=== PATIENT | male | born 1980 | race Hispanic/Latino ===

== ENCOUNTER 2018-09-20 14:51 | Emergency (ER) | payer BC ==
[2018-09-20] MEDS ORDERED: DEXAMETHASONE 4 MG TAB ONE (15:44)
--- NOTE | 2018-09-20 15:59 | EDPHYS ---
Physician Documentation [facility] Name: Presley Madera Age: 38 yrs Sex: Male : 1980 Arrival Date: 09/20/2018 Time: 14:55 Bed 11 Private MD: None, None ED Physician Favian Asif HPI: 09/20 15:39 This 38 yrs old Male presents to ER via Ambulatory with complaints of Cough, snw Sore Throat. 15:39 The patient or guardian reports cough, flu symptoms, low-grade fever, myalgias, no snw appetite, hoarse voice. Onset: The symptoms/episode began/occurred suddenly, 4 day(s) ago, and became persistent. Severity of symptoms: At their worst the symptoms were moderate. Associated signs and symptoms: Pertinent positives: fever, rhinorrhea, sore throat. yearly. The patient has not recently seen a physician. Historical: - Allergies: 15:00 No Known Allergies; ss - Home Meds: 15:00 None [Active]; ss - PMHx: 15:00 None; ss - PSHx: 15:00 None; ss - Immunization history:: Adult Immunizations up to date. - Social history:: Smoking status: Patient uses tobacco products, denies chronic smoking, but will smoke occasionally. - Ebola Screening: : Patient denies exposure to infectious person Patient denies travel to an Ebola-affected area in the 21 days before illness onset. ROS: 15:29 Constitutional: Negative for fever, chills, and weight loss, Eyes: Negative for injury, snw pain, redness, and discharge. 15:39 Neck: Negative for injury, pain, and swelling, Cardiovascular: Negative for chest pain, snw palpitations, and edema, Abdomen/GI: Negative for abdominal pain, nausea, vomiting, diarrhea, and constipation, Back: Negative for injury and pain, : Negative for injury, bleeding, discharge, and swelling, MS/Extremity: Negative for injury and deformity, Skin: Negative for injury, rash, and discoloration, Neuro: Negative for headache, weakness, numbness, tingling, and seizure, Psych: Negative for depression, anxiety, suicide ideation, homicidal ideation, and hallucinations. 15:39 ENT: Positive for nasal discharge, sinus congestion, sore throat. 15:39 Respiratory: Positive for cough, with no reported sputum. Exam: 15:35 Constitutional: This is a well developed, well nourished patient who is awake, alert, snw and in no acute distress. Head/Face: Normocephalic, atraumatic. Eyes: Pupils equal round and reactive to light, extra-ocular motions intact. Lids and lashes normal. Conjunctiva and sclera are non-icteric and not injected. Cornea within normal limits. Periorbital areas with no swelling, redness, or edema. Neck: Trachea midline, no thyromegaly or masses palpated, and no cervical lymphadenopathy. Supple, full range of motion without nuchal rigidity, or vertebral point tenderness. No Meningismus. Chest/axilla: Normal chest wall appearance and motion. Nontender with no deformity. No lesions are appreciated. Cardiovascular: Regular rate and rhythm with a normal S1 and S2. No gallops, murmurs, or rubs. Normal PMI, no JVD. No pulse deficits. Respiratory: Lungs have equal breath sounds bilaterally, clear to auscultation and percussion. No rales, rhonchi or wheezes noted. No increased work of breathing, no retractions or nasal flaring. Abdomen/GI: Soft, non-tender, with normal bowel sounds. No distension or tympany. No guarding or rebound. No evidence of tenderness throughout. Back: No spinal tenderness. No costovertebral tenderness. Full range of motion. Skin: Warm, dry with normal turgor. Normal color with no rashes, no lesions, and no evidence of cellulitis. MS/ Extremity: Pulses equal, no cyanosis. Neurovascular intact. Full, normal range of motion. Neuro: Awake and alert, GCS 15, oriented to person, place, time, and situation. Cranial nerves II-XII grossly intact. Motor strength 5/5 in all extremities. Sensory grossly intact. Cerebellar exam normal. Normal gait. Psych: Awake, alert, with orientation to person, place and time. Behavior, mood, and affect are within normal limits. 15:35 ENT: External ear(s): are unremarkable, Ear canal(s): are normal, TM's: are normal, Nose: is normal, Mouth: is normal, Posterior pharynx: erythema, that is moderate. Vital Signs: 15:00 BP 160 / 109; Pulse 89; Resp 16; Temp 98.4(TE); Pulse Ox 98% on R/A; Weight 117.93 kg; ss Height 5 ft. 9 in. (175.26 cm); Pain 5/10; 16:10 BP 145 / 70; Pulse 82; Resp 18; Pulse Ox 98% on R/A; Pain 1/10; mg2 15:00 Body Mass Index 38.39 (117.93 kg, 175.26 cm) ss MDM: 15:15 Patient medically screened. snw 15:39 Data reviewed: vital signs, nurses notes. Data interpreted: Pulse oximetry: on room air snw is 98 %. Interpretation: normal. Counseling: I had a detailed discussion with the patient and/or guardian regarding: the historical points, exam findings, and any diagnostic results supporting the discharge/admit diagnosis, the presence of at least one elevated blood pressure reading (>120/80) during this emergency department visit, lab results, the need for outpatient follow up, for definitive care. 09/20 15:01 Order name: Strep; Complete Time: 16:00 ss 09/20 15:01 Order name: Flu; Complete Time: 16:00 ss 09/20 15:59 Order name: Throat Culture EDMS Administered Medications: 15:40 Drug: Decadron 8 mg Route: PO; mg2 16:02 Follow up: Response: No adverse reaction; Marked relief of symptoms mg2 Disposition: 09/20/18 15:59 Discharged to Home. Impression: Acute upper respiratory infection, unspecified, Acute pharyngitis. - Condition is Stable. - Discharge Instructions: Hypertension, Pharyngitis, Upper Respiratory Infection, Adult, Cool Mist Vaporizer, Rehydration, Adult. - Prescriptions for Tessalon Perles 100 mg Oral Capsule - take 1 capsule by ORAL route every 8 hours As needed; 15 capsule. Prednisone 20 mg Oral Tablet - take 2 tablet by ORAL route once daily for 5 days; 10 tablet. - Work release form, Medication Reconciliation Form, Thank You Letter, Antibiotic Education, Prescription Opioid Use form. - Follow up: Private Physician; When: 2 - 3 days; Reason: Recheck today's complaints, Continuance of care, Re-evaluation by your physician. Follow up: Emergency Department; When: As needed; Reason: Worsening of condition. Follow up: Cristiana Estrada MD; When: As needed; Reason: Continuance of care. Addendum: 09/23/2018 19:05 Co-signature as Attending Physician, Favian Asif MD. g s Signatures: Dispatcher [employer] EDKatie Bianchi, MATILDE-C TRAPPER BIRD-Kati Simons, RN RN ss Favian Asif MD MD Zhao Dias, RN RN mg2 Corrections: (The following items were deleted from the chart) 09/20 16:11 15:59 09/20/2018 15:59 Discharged to Home. Impression: Acute upper respiratory mg2 infection, unspecified; Acute pharyngitis. Condition is Stable. Forms are Medication Reconciliation Form, Thank You Letter, Antibiotic Education, Prescription Opioid Use. Follow up: Private Physician; When: 2 - 3 days; Reason: Recheck today's complaints, Continuance of care, Re-evaluation by your physician. Follow up: Emergency Department; When: As needed; Reason: Worsening of condition. Follow up: Cristiana Estarda; When: As needed; Reason: Continuance of care. snw
--- NOTE | 2018-09-20 15:59 | ER ---
Nurse's Notes [facility] Name: Presley Madera Age: 38 yrs Sex: Male : 1980 Arrival Date: 09/20/2018 Time: 14:55 Bed 11 Private MD: None, None Diagnosis: Acute upper respiratory infection, unspecified;Acute pharyngitis Presentation: 09/20 14:59 Presenting complaint: Patient states: fever, cough and sore throat x 3-4. Transition of ss care: patient was not received from another setting of care. Onset of symptoms was September 17, 2018. Risk Assessment: Do you want to hurt yourself or someone else? Patient reports no desire to harm self or others. Initial Sepsis Screen: Does the patient meet any 2 criteria? No. Patient's initial sepsis screen is negative. Does the patient have a suspected source of infection? No. Patient's initial sepsis screen is negative. Care prior to arrival: None. 14:59 Method Of Arrival: Ambulatory ss 14:59 Acuity: NATASHA 4 ss Historical: - Allergies: 15:00 No Known Allergies; ss - Home Meds: 15:00 None [Active]; ss - PMHx: 15:00 None; ss - PSHx: 15:00 None; ss - Immunization history:: Adult Immunizations up to date. - Social history:: Smoking status: Patient uses tobacco products, denies chronic smoking, but will smoke occasionally. - Ebola Screening: : Patient denies exposure to infectious person Patient denies travel to an Ebola-affected area in the 21 days before illness onset. Screenin:58 Abuse screen: Denies threats or abuse. Denies injuries from another. Nutritional mg2 screening: No deficits noted. Tuberculosis screening: No symptoms or risk factors identified. Fall Risk None identified. Assessment: 15:57 General: Appears in no apparent distress. comfortable, Behavior is calm, cooperative. mg2 Pain: Complains of pain in throat Pain does not radiate. Pain currently is 4 out of 10 on a pain scale. Quality of pain is described as aching, Pain began gradually, 1 day ago. Is intermittent, Alleviated by rest, Aggravated by eating, drinking. Neuro: Level of Consciousness is awake, alert, obeys commands, Oriented to person, place, time. Cardiovascular: Capillary refill < 3 seconds Patient's skin is warm and dry. Respiratory: Airway is patent Respiratory effort is even, unlabored, Respiratory pattern is regular, symmetrical, Breath sounds are clear bilaterally. in right upper lobe, left upper lobe, left posterior upper lobe, right posterior upper lobe, left posterior lower lobe, right posterior middle lobe and right posterior lower lobe. GI: No signs and/or symptoms were reported involving the gastrointestinal system. : No signs and/or symptoms were reported regarding the genitourinary system. EENT: Throat is reddened. Derm: Skin is intact, is healthy with good turgor, Skin is pink, warm \T\ dry. normal. Musculoskeletal: No signs and/or symptoms reported regarding the musculoskeletal system. Vital Signs: 15:00 BP 160 / 109; Pulse 89; Resp 16; Temp 98.4(TE); Pulse Ox 98% on R/A; Weight 117.93 kg; ss Height 5 ft. 9 in. (175.26 cm); Pain 5/10; 16:10 BP 145 / 70; Pulse 82; Resp 18; Pulse Ox 98% on R/A; Pain 1/10; mg2 15:00 Body Mass Index 38.39 (117.93 kg, 175.26 cm) ED Course: 14:55 Patient arrived in ED. dl4 14:55 None, None is Private Physician. dl4 14:59 Triage completed. ss 15:00 Arm band placed on right wrist. ss 15:04 Flu Sent. ss 15:04 Strep Sent. ss 15:13 Zhao Dias, RN is Primary Nurse. mg2 15:14 [facility]C [facility]. snw 15:14 Favian Asif MD is Attending Physician. snw 15:58 Cristiana Estrada MD is Referral Physician. snw 15:58 Patient has correct armband on for positive identification. mg2 15:58 No provider procedures requiring assistance completed. Patient did not have IV access mg2 during this emergency room visit. Administered Medications: 15:40 Drug: Decadron 8 mg Route: PO; mg2 16:02 Follow up: Response: No adverse reaction; Marked relief of symptoms mg2 Outcome: 15:59 Discharge ordered by . snw 16:10 Discharged to home ambulatory. mg2 16:10 Condition: stable 16:10 Discharge instructions given to patient, Instructed on discharge instructions, follow up and referral plans. medication usage, Demonstrated understanding of instructions, follow-up care, medications, Prescriptions given X 2. 16:11 Patient left the ED. mg2 Signatures: Katie Jacobo, VENETIAN BLIND MECHANIC-C VENETIAN BLIND MECHANIC-Csnw Kati Osborne RN RN ss Zhao Dias RN RN [facility] Theodore Quintana dl4 Corrections: (The following items were deleted from the chart) 15:05 14:59 Acuity: NATASHA 3 [facility]
== END 2018-09-20 16:11 | disposition home or self-care (01) ==
LOC: ER 14:51
DX: J02.9 Acute pharyngitis, unspecified (principal); Z72.0 Tobacco use
CPT/HCPCS: 87070; 87081; 87804; 99283

== ENCOUNTER 2018-11-30 13:17 | Emergency (ER) | payer BC ==
[2018-11-30] MEDS ORDERED: NA CHLORIDE 0.9% 1,000 ML ONE (14:00)
[2018-11-30] MEDS ORDERED: ONDANSETRON 4 MG/2 ML VIAL ONE (14:00)
--- NOTE | 2018-11-30 15:26 | EDPHYS ---
Physician Documentation [facility] Name: Presley Madera Age: 38 yrs Sex: Male : 1980 Arrival Date: 11/30/2018 Time: 13:20 Bed 13 Private MD: None, None ED Physician Bradley Matthews HPI: 11/30 14:49 This 38 yrs old Male presents to ER via Ambulatory with complaints of rn Nausea/Vomiting/Diarrhea. 14:49 The patient presents to the emergency department with nausea, vomiting, diarrhea. rn Onset: The symptoms/episode began/occurred 2 day(s) ago. 14:49 Possible causes: unknown. The symptoms are aggravated by nothing. The symptoms are rn alleviated by nothing. Severity of symptoms: At their worst the symptoms were moderate in the emergency department the symptoms are unchanged. The patient has experienced similar episodes in the past. REports multiple co-workers sick, + nausea/vomiting/diarrhea, no abd pain. NO fever. . Historical: - Allergies: 13:33 No Known Allergies; hb - Home Meds: 13:33 None [Active]; hb - PMHx: 13:33 None; hb - PSHx: 13:33 None; hb - Immunization history:: Adult Immunizations up to date. - Social history:: Smoking status: Patient uses tobacco products, smokes one-half pack cigarettes per day. - Ebola Screening: : No symptoms or risks identified at this time. - Family history:: not pertinent. - Hospitalizations: : No recent hospitalization is reported. ROS: 14:49 Constitutional: Negative for fever, chills, and weight loss, Eyes: Negative for injury, rn pain, redness, and discharge, Neck: Negative for injury, pain, and swelling, Cardiovascular: Negative for chest pain, palpitations, and edema, Respiratory: Negative for shortness of breath, cough, wheezing, and pleuritic chest pain, Abdomen/GI: Negative for abdominal pain, and constipation MS/Extremity: Negative for injury and deformity, Skin: Negative for injury, rash, and discoloration, Neuro: Negative for headache, numbness, tingling, and seizure. Exam: 14:49 Constitutional: This is a well developed, well nourished patient who is awake, alert, rn and in no acute distress. Head/Face: Normocephalic, atraumatic. Eyes: Pupils equal round and reactive to light, extra-ocular motions intact. Lids and lashes normal. Conjunctiva and sclera are non-icteric and not injected. Cornea within normal limits. Periorbital areas with no swelling, redness, or edema. ENT: dry MM Cardiovascular: Regular rate and rhythm, No pulse deficits. Respiratory: Lungs have equal breath sounds bilaterally, clear to auscultation, No increased work of breathing, no retractions or nasal flaring. Abdomen/GI: soft, non-tender MS/ Extremity: Pulses equal, no cyanosis. Neurovascular intact. Full, normal range of motion. Equal circumference. Neuro: Awake and alert, GCS 15, oriented to person, place, time, and situation. Cranial nerves II-XII grossly intact. Motor strength 5/5 in all extremities. Sensory grossly intact. Cerebellar exam normal. Normal gait. Vital Signs: 13:33 BP 156 / 100; Pulse 88; Resp 16; Temp 98.4; Pulse Ox 100% on R/A; Pain 0/10; hb MDM: 13:35 Patient medically screened. rn 15:18 Differential diagnosis: viral gastroenteritis, gastroenteritis. Data reviewed: vital rn signs, nurses notes, and as a result, I will discharge patient. Counseling: I had a detailed discussion with the patient and/or guardian regarding: the historical points, exam findings, and any diagnostic results supporting the discharge/admit diagnosis, the need for outpatient follow up, to return to the emergency department if symptoms worsen or persist or if there are any questions or concerns that arise at home. Response to treatment: the patient's symptoms have markedly improved after treatment, and as a result, I will discharge patient. Special discussion: I discussed with the patient/guardian in detail that at this point there is no indication for admission to the hospital. It is understood, however, that if the symptoms persist or worsen the patient needs to return immediately for re-evaluation. 11/30 13:39 Order name: IV Start; Complete Time: 14:06 rn Administered Medications: 13:50 Drug: Zofran 4 mg Route: IVP; Site: right hand; ls4 14:17 Follow up: Response: No adverse reaction; Marked relief of symptoms ls4 13:50 Drug: NS 0.9% 1000 ml Route: IV; Rate: 1000 ml; Site: right hand; ls4 Disposition: 11/30/18 15:24 Discharged to Home. Impression: Vomiting, Diarrhea, unspecified. - Condition is Stable. - Discharge Instructions: Food Choices to Help Relieve Diarrhea, Adult, Diarrhea, Adult, Viral Gastroenteritis, Adult. - Prescriptions for Zofran ODT 4 mg Oral tablet,disintegrating - place 1 tablet by TRANSLINGUAL route every 8 hours As needed; 20 tablet. - Medication Reconciliation Form, Thank You Letter, Antibiotic Education, Prescription Opioid Use, Work release form form. - Follow up: Private Physician; When: As needed; Reason: Recheck today's complaints, Re-evaluation by your physician. - Problem is new. - Symptoms have improved. Signatures: Bradley Matthews MD MD rn Baxter, Heather, RN RN hb Stewart, Lisa, RN RN ls4 Corrections: (The following items were deleted from the chart) 14:50 14:49 Onset: The symptoms/episode began/occurred yesterday, rn rn 16:03 15:24 11/30/2018 15:24 Discharged to Home. Impression: Vomiting; Diarrhea, unspecified. hb Condition is Stable. Forms are Medication Reconciliation Form, Thank You Letter, Antibiotic Education, Prescription Opioid Use. Follow up: Private Physician; When: As needed; Reason: Recheck today's complaints, Re-evaluation by your physician. Problem is new. Symptoms have improved. rn
--- NOTE | 2018-11-30 15:26 | ER ---
Nurse's Notes [facility] Name: Presley Madera Age: 38 yrs Sex: Male : 1980 Arrival Date: 11/30/2018 Time: 13:20 Bed 13 Private MD: None, None Diagnosis: Vomiting;Diarrhea, unspecified Presentation: 11/30 13:31 Presenting complaint: N/V/D x 2 days. Denies pain/fever. Tolerating water. Transition hb of care: patient was not received from another setting of care. Onset of symptoms was November 29, 2018. Risk Assessment: Do you want to hurt yourself or someone else? Patient reports no desire to harm self or others. Initial Sepsis Screen: Does the patient meet any 2 criteria? No. Patient's initial sepsis screen is negative. Does the patient have a suspected source of infection? No. Patient's initial sepsis screen is negative. Care prior to arrival: None. 13:31 Method Of Arrival: Ambulatory hb 13:31 Acuity: NATASHA 3 hb Triage Assessment: 13:31 General: Appears in no apparent distress. Behavior is calm, cooperative. ls4 13:31 Neuro: No deficits noted. Cardiovascular: No deficits noted. Respiratory: No deficits ls4 noted. GI: Reports vomiting. Historical: - Allergies: 13:33 No Known Allergies; hb - Home Meds: 13:33 None [Active]; hb - PMHx: 13:33 None; hb - PSHx: 13:33 None; hb - Immunization history:: Adult Immunizations up to date. - Social history:: Smoking status: Patient uses tobacco products, smokes one-half pack cigarettes per day. - Ebola Screening: : No symptoms or risks identified at this time. - Family history:: not pertinent. - Hospitalizations: : No recent hospitalization is reported. Screenin:06 Abuse screen: Denies threats or abuse. Denies injuries from another. Nutritional ls4 screening: No deficits noted. Tuberculosis screening: No symptoms or risk factors identified. Fall Risk None identified. Assessment: 14:06 General: Appears in no apparent distress. Pain: Denies pain. Neuro: No deficits noted. ls4 Cardiovascular: No deficits noted. Respiratory: No deficits noted. GI: Abdomen is non-distended, obese, Bowel sounds present X 4 quads. Abd is soft and non tender X 4 quads. Vital Signs: 13:33 BP 156 / 100; Pulse 88; Resp 16; Temp 98.4; Pulse Ox 100% on R/A; Pain 0/10; hb ED Course: 13:20 Patient arrived in ED. sb2 13:21 None, None is Private Physician. sb2 13:32 Triage completed. hb 13:33 Arm band placed on left wrist. hb 13:35 Bradley Matthews MD is Attending Physician. rn 13:40 Jane Salcido, ELIDA is Primary Nurse. ls4 13:50 No provider procedures requiring assistance completed. Inserted saline lock: 20 gauge ls4 in right hand, using aseptic technique. 14:06 Patient has correct armband on for positive identification. Placed in gown. Bed in low ls4 position. Call light in reach. Side rails up X 1. nurse monitoring on. Pulse ox on. NIBP on. Administered Medications: 13:50 Drug: Zofran 4 mg Route: IVP; Site: right hand; ls4 14:17 Follow up: Response: No adverse reaction; Marked relief of symptoms ls4 13:50 Drug: NS 0.9% 1000 ml Route: IV; Rate: 1000 ml; Site: right hand; ls4 Outcome: 15:24 Discharge ordered by . rn 16:03 Patient left the ED. Signatures: Bradley Matthews MD MD rn Baxter, Heather, RN RN hb Billeau, Sheri sb2 Jane Salcido RN RN ls4
== END 2018-11-30 16:03 | disposition home or self-care (01) ==
LOC: ER 13:17
DX: R11.2 Nausea with vomiting, unspecified (principal); R19.7 Diarrhea, unspecified; F17.210 Nicotine dependence, cigarettes, uncomplicated
CPT/HCPCS: 96374; 99284; J2405; J7030

== ENCOUNTER 2019-01-07 07:48 | Emergency (ER) | payer BC ==
--- NOTE | 2019-01-07 08:43 | ER ---
Nurse's Notes [facility] Name: Presley Madera Age: 38 yrs Sex: Male : 1980 Arrival Date: 01/07/2019 Time: 07:50 Bed 8 Private MD: Diagnosis: Vomiting;Nausea and vomiting;Acute pharyngitis Presentation: 01/07 08:02 Presenting complaint: Sinus congestion, headache, and N/V/D since yesterday. Transition hb of care: patient was not received from another setting of care. Onset of symptoms was January 06, 2019. Risk Assessment: Do you want to hurt yourself or someone else? Patient reports no desire to harm self or others. Initial Sepsis Screen: Does the patient meet any 2 criteria? No. Patient's initial sepsis screen is negative. Does the patient have a suspected source of infection? No. Patient's initial sepsis screen is negative. Care prior to arrival: None. 08:02 Method Of Arrival: Ambulatory hb 08:02 Acuity: NATASHA 4 hb Triage Assessment: 08:17 General: Appears in no apparent distress. Behavior is calm, cooperative, appropriate tw2 for age. GI: Reports diarrhea, nausea, vomiting. Historical: - Allergies: 08:04 No Known Allergies; hb - PSHx: 08:04 None; hb - Immunization history:: Adult Immunizations up to date. - Social history:: Smoking status: Patient/guardian denies using tobacco. - Ebola Screening: : No symptoms or risks identified at this time. - Family history:: not pertinent. Screenin:04 Abuse screen: Denies threats or abuse. Denies injuries from another. Nutritional hb screening: No deficits noted. Tuberculosis screening: No symptoms or risk factors identified. Fall Risk None identified. Assessment: 08:15 General: Appears in no apparent distress. Behavior is calm, cooperative. Neuro: Level hb of Consciousness is awake, alert, obeys commands, Oriented to person, place, time, situation. Cardiovascular: Capillary refill < 3 seconds Patient's skin is warm and dry. Respiratory: Airway is patent Respiratory effort is even, unlabored, Respiratory pattern is regular, symmetrical, Breath sounds are clear bilaterally. GI: Abdomen is non-distended, Bowel sounds present X 4 quads. Abd is soft and non tender X 4 quads. Reports diarrhea, nausea, vomiting. : No signs and/or symptoms were reported regarding the genitourinary system. EENT: No signs and/or symptoms were reported regarding the EENT system. Derm: Skin is intact, is healthy with good turgor. Musculoskeletal: No signs and/or symptoms reported regarding the musculoskeletal system. Vital Signs: 08:01 BP 146 / 86; Pulse 72; Resp 16; Temp 98.4; Pulse Ox 98% ; Weight 113.4 kg; Height 5 ft. hb 9 in. (175.26 cm); Pain 4/10; 08:01 Body Mass Index 36.92 (113.40 kg, 175.26 cm) hb ED Course: 07:50 Patient arrived in ED. as 07:55 New Dasilva MD is Attending Physician. [facility] 08:01 Malissa Xavier, RN is Primary Nurse. hb 08:03 Triage completed. hb 08:04 Arm band placed on. hb 08:05 Patient has correct armband on for positive identification. Bed in low position. Call hb light in reach. Side rails up X 1. 08:52 No provider procedures requiring assistance completed. Patient did not have IV access hb during this emergency room visit. Administered Medications: 08:45 Drug: Augmentin 875 mg Route: PO; hb 08:46 Follow up: Response: Medication administered at discharge. hb 08:46 Drug: Zofran 4 mg Route: PO; hb 08:46 Follow up: Response: Medication administered at discharge. hb Outcome: 08:42 Discharge ordered by . ankit 08:53 Discharged to home ambulatory. hb 08:53 Condition: stable 08:53 Discharge instructions given to patient, Instructed on discharge instructions, follow up and referral plans. no driving heavy equipment, Demonstrated understanding of instructions, follow-up care, medications, Prescriptions given X 2. 08:53 Patient left the ED. hb Signatures: New Dasilva MD MD cha Martinez, Amelia as Malissa Xavier, RN RN Galina Rodríguez RN RN tw2 Corrections: (The following items were deleted from the chart) 16:32 08:53 GI: Abdomen is flat, hb hb 16:32 08:53 Pain: Denies pain. hb hb 16:33 09:00 General: Appears in no apparent distress. Behavior is calm, cooperative, hb hb 16:33 09:00 Neuro: Level of Consciousness is awake, alert, obeys commands, Oriented to hb person, place, time, situation, hb 16:33 09:00 Cardiovascular: Capillary refill < 3 seconds Patient's skin is warm and dry. hb hb 16: 09:00 Respiratory: Airway is patent Respiratory effort is even, unlabored, Respiratory hb pattern is regular, symmetrical, Breath sounds are clear bilaterally. hb 16:33 09:00 GI: Abdomen is non-distended, Bowel sounds present X 4 quads. Abd is soft and non hb tender X 4 quads. Reports diarrhea, nausea, vomiting, hb 16: 09:00 : No signs and/or symptoms were reported regarding the genitourinary system. hb hb 16:33 09:00 EENT: No signs and/or symptoms were reported regarding the EENT system. hb hb 16: 09:00 Derm: Skin is intact, is healthy with good turgor, hb hb 16: 09:00 Musculoskeletal: No signs and/or symptoms reported regarding the musculoskeletal hb system. hb
--- NOTE | 2019-01-07 08:43 | EDPHYS ---
Physician Documentation [facility] Name: Presley Madera Age: 38 yrs Sex: Male : 1980 Arrival Date: 01/07/2019 Time: 07:50 Bed 8 Private MD: ED Physician New Dasilva HPI: 01/07 08:35 This 38 yrs old Male presents to ER via Ambulatory with complaints of ankit Vomiting/Diarrhea, Cough, Congestion. 08:35 The patient presents to the emergency department with nausea, vomiting, diarrhea, that ankit is intermittent. Onset: The symptoms/episode began/occurred 1 day(s) ago. Possible causes: unknown. The symptoms are aggravated by nothing. The symptoms are alleviated by nothing. Severity of symptoms: At their worst the symptoms were mild in the emergency department the symptoms are unchanged. Historical: - Allergies: 08:04 No Known Allergies; hb - PSHx: 08:04 None; hb - Immunization history:: Adult Immunizations up to date. - Social history:: Smoking status: Patient/guardian denies using tobacco. - Ebola Screening: : No symptoms or risks identified at this time. - Family history:: not pertinent. ROS: 08:35 Constitutional: Negative for fever, chills, and weight loss, Eyes: Negative for injury, ankit pain, redness, and discharge, Neck: Negative for injury, pain, and swelling, Cardiovascular: Negative for chest pain, palpitations, and edema, Respiratory: Negative for shortness of breath, cough, wheezing, and pleuritic chest pain, Back: Negative for injury and pain, : Negative for injury, bleeding, discharge, and swelling, MS/Extremity: Negative for injury and deformity, Skin: Negative for injury, rash, and discoloration, Neuro: Negative for headache, weakness, numbness, tingling, and seizure. 08:35 ENT: Positive for difficulty swallowing. 08:35 Abdomen/GI: Positive for nausea and vomiting, diarrhea. Exam: 08:35 Constitutional: This is a well developed, well nourished patient who is awake, alert, ankit and in no acute distress. Head/Face: Normocephalic, atraumatic. Eyes: Pupils equal round and reactive to light, extra-ocular motions intact. Lids and lashes normal. Conjunctiva and sclera are non-icteric and not injected. Cornea within normal limits. Periorbital areas with no swelling, redness, or edema. Neck: Trachea midline, no thyromegaly or masses palpated, and no cervical lymphadenopathy. Supple, full range of motion without nuchal rigidity, or vertebral point tenderness. No Meningismus. Chest/axilla: Normal chest wall appearance and motion. Nontender with no deformity. No lesions are appreciated. Cardiovascular: Regular rate and rhythm with a normal S1 and S2. No gallops, murmurs, or rubs. Normal PMI, no JVD. No pulse deficits. Respiratory: Lungs have equal breath sounds bilaterally, clear to auscultation and percussion. No rales, rhonchi or wheezes noted. No increased work of breathing, no retractions or nasal flaring. Back: No spinal tenderness. No costovertebral tenderness. Full range of motion. Male : Normal genitalia with no discharge or lesions. Skin: Warm, dry with normal turgor. Normal color with no rashes, no lesions, and no evidence of cellulitis. MS/ Extremity: Pulses equal, no cyanosis. Neurovascular intact. Full, normal range of motion. Neuro: Awake and alert, GCS 15, oriented to person, place, time, and situation. Cranial nerves II-XII grossly intact. Motor strength 5/5 in all extremities. Sensory grossly intact. Cerebellar exam normal. Normal gait. Psych: Awake, alert, with orientation to person, place and time. Behavior, mood, and affect are within normal limits. 08:35 ENT: Posterior pharynx: Tonsils: bilaterally enlarged, with erythema, no exudate, no ulcerations, Uvula: midline, non-edematous, erythema, swelling, that is mild, erythema, that is mild, exudate, is not appreciated, peritonsillar mass, is not appreciated. Vital Signs: 08:01 BP 146 / 86; Pulse 72; Resp 16; Temp 98.4; Pulse Ox 98% ; Weight 113.4 kg; Height 5 ft. hb 9 in. (175.26 cm); Pain 4/10; 08:01 Body Mass Index 36.92 (113.40 kg, 175.26 cm) hb MDM: 07:55 Patient medically screened. [facility] 08:41 Data reviewed: vital signs, nurses notes. [facility] Administered Medications: 08:45 Drug: Augmentin 875 mg Route: PO; hb 08:46 Follow up: Response: Medication administered at discharge. hb 08:46 Drug: Zofran 4 mg Route: PO; hb 08:46 Follow up: Response: Medication administered at discharge. hb Disposition: 01/07/19 08:42 Discharged to Home. Impression: Vomiting, Nausea and vomiting, Acute pharyngitis. - Condition is Stable. - Discharge Instructions: Nausea and Vomiting, Adult, Pharyngitis, Sore Throat, Nausea and Vomiting, Adult, Uqly-[id number], Pharyngitis, [id number]-[id number]-Oehw, Sore Throat, Aiqz-in-Xyui. - Prescriptions for Augmentin 875- 125 mg Oral Tablet - take 1 tablet by ORAL route every 12 hours for 10 days; 20 tablet. Zofran 4 mg Oral Tablet - take 1 tablet by ORAL route every 12 hours As needed; 20 tablet. - Medication Reconciliation Form, Thank You Letter, Antibiotic Education, Prescription Opioid Use, Work release form form. - Follow up: Private Physician; When: 2 - 3 days; Reason: Recheck today's complaints, Continuance of care, Re-evaluation by your physician. - Problem is new. - Symptoms have improved. Signatures: New Dasilva MD MD cha Baxter, Heather RN RN Corrections: (The following items were deleted from the chart) 08:53 08:42 01/07/2019 08:42 Discharged to Home. Impression: Vomiting; Nausea and vomiting; hb Acute pharyngitis. Condition is Stable. Forms are Medication Reconciliation Form, Thank You Letter, Antibiotic Education, Prescription Opioid Use. Follow up: Private Physician; When: 2 - 3 days; Reason: Recheck today's complaints, Continuance of care, Re-evaluation by your physician. Problem is new. Symptoms have improved. ankit
[2019-01-07] MEDS ORDERED: AMOX/K CLAV 875 MG TAB ONE (08:55)
[2019-01-07] MEDS ORDERED: ONDANSETRON 4 MG (ODT) TAB ONE (08:55)
== END 2019-01-07 08:53 | disposition home or self-care (01) ==
LOC: ER 07:48
DX: R11.2 Nausea with vomiting, unspecified (principal); J02.9 Acute pharyngitis, unspecified; R19.7 Diarrhea, unspecified
CPT/HCPCS: 99283

== ENCOUNTER 2019-01-18 15:52 | Emergency (ER) | payer BC ==
--- NOTE | 2019-01-18 16:56 | ER ---
Nurse's Notes [facility] Name: Presley Madera Age: 38 yrs Sex: Male : 1980 Arrival Date: 01/18/2019 Time: 15:55 Bed 10 Private MD: None, None Diagnosis: Acute upper respiratory infection, unspecified Presentation: 01/18 16:00 Presenting complaint: Patient states: i have flu like symptoms, cough congestion, last tw2 night it started, i am having trouble sleeping and coughing is making me want to throw up. Transition of care: patient was not received from another setting of care. Onset of symptoms was January 18, 2019. Risk Assessment: Do you want to hurt yourself or someone else? Patient reports no desire to harm self or others. Initial Sepsis Screen: Does the patient meet any 2 criteria? No. Patient's initial sepsis screen is negative. Does the patient have a suspected source of infection? No. Patient's initial sepsis screen is negative. Care prior to arrival: None. 16:00 Method Of Arrival: Ambulatory tw2 16:00 Acuity: NATASHA 4 tw2 Triage Assessment: 16:01 General: Appears in no apparent distress. Behavior is calm, cooperative, appropriate tw2 for age. Pain: Complains of pain in nose. EENT: Reports nasal congestion nasal discharge. Respiratory: Reports cough that is Historical: - Allergies: 16:02 No Known Allergies; tw2 - Home Meds: 16:02 None [Active]; tw2 - PMHx: 16:02 None; tw2 - PSHx: 16:02 None; tw2 - Immunization history:: Adult Immunizations. - Social history:: Smoking status: Patient uses tobacco products, smokes one-half pack cigarettes per day. - Ebola Screening: : Patient denies travel to an Ebola-affected area in the 21 days before illness onset. Screenin:46 Abuse screen: Denies threats or abuse. Denies injuries from another. Nutritional aj1 screening: No deficits noted. Tuberculosis screening: No symptoms or risk factors identified. 17:42 Fall Risk None identified. aj1 Assessment: 16:46 General: Appears in no apparent distress. uncomfortable, ill, Behavior is calm, aj1 cooperative, appropriate for age. Pain: Complains of pain in nose Pain currently is 6 out of 10 on a pain scale. Neuro: Level of Consciousness is awake, alert, obeys commands. Cardiovascular: Patient's skin is warm and dry. Respiratory: Reports cough that is hacking, Airway is patent Respiratory effort is even, unlabored, Respiratory pattern is regular, symmetrical. GI: No signs and/or symptoms were reported involving the gastrointestinal system. : No signs and/or symptoms were reported regarding the genitourinary system. EENT: Reports nasal congestion nasal discharge. Derm: No signs and/or symptoms reported regarding the dermatologic system. Skin is pink, warm \T\ dry. normal. Musculoskeletal: No signs and/or symptoms reported regarding the musculoskeletal system. Circulation, motion, and sensation intact. 17:41 Reassessment: Patient appears in no apparent distress at this time. No changes from aj1 previously documented assessment. Patient and/or family updated on plan of care and expected duration. Pain level reassessed. Patient is alert, oriented x 3, equal unlabored respirations, skin warm/dry/pink. Vital Signs: 16:01 BP 137 / 93; Pulse 83; Resp 17; Temp 98.3(O); Pulse Ox 99% on R/A; Weight 120.2 kg (R); tw2 Height 5 ft. 9 in. (175.26 cm); Pain 6/10; 16:01 Body Mass Index 39.13 (120.20 kg, 175.26 cm) tw2 ED Course: 15:55 Patient arrived in ED. mr 15:55 None, None is Private Physician. mr 16:00 [facility] Senior [facility]C [facility] kb 16:00 New Dasilva MD is Attending Physician. kb 16:00 Triage completed. tw2 16:01 Arm band placed on. tw2 16:18 Gena Rondon, ELIDA is Primary Nurse. aj1 16:46 Patient has correct armband on for positive identification. Bed in low position. Call aj1 light in reach. Side rails up X 1. 16:46 No provider procedures requiring assistance completed. aj1 17:41 Patient did not have IV access during this emergency room visit. aj1 Administered Medications: No medications were administered Outcome: 16:56 Discharge ordered by . kb 17:42 Discharged to home ambulatory. aj1 17:42 Condition: good 17:42 Discharge instructions given to patient, Instructed on discharge instructions, follow up and referral plans. medication usage, Demonstrated understanding of instructions, follow-up care, medications, Prescriptions given X 1. 17:42 Patient left the ED. aj1 Signatures: Shanta Senior FNP-C FNP-Gena Fitch RN RN aj1 Tsering Carpenter mr Galina Thomas RN RN tw2
--- NOTE | 2019-01-18 16:56 | EDPHYS ---
Physician Documentation [facility] Name: Presley Madera Age: 38 yrs Sex: Male : 1980 Arrival Date: 01/18/2019 Time: 15:55 Bed 10 Private MD: None, None ED Physician New Dasilva HPI: 01/18 16:29 This 38 yrs old Male presents to ER via Ambulatory with complaints of Flu kb Symptoms. 16:29 The patient or guardian reports cough, that is intermittent, described as mild, with no kb sputum, flu symptoms, myalgias. Onset: The symptoms/episode began/occurred yesterday. Severity of symptoms: At their worst the symptoms were moderate, in the emergency department the symptoms are unchanged. Modifying factors: The symptoms are alleviated by nothing, the symptoms are aggravated by nothing. Associated signs and symptoms: Pertinent positives: rhinorrhea, sore throat, Pertinent negatives: chest pain, diarrhea, ear ache, fever, nausea, vomiting. The patient has not experienced similar symptoms in the past. The patient has not recently seen a physician. Historical: - Allergies: 16:02 No Known Allergies; tw2 - Home Meds: 16:02 None [Active]; tw2 - PMHx: 16:02 None; tw2 - PSHx: 16:02 None; tw2 - Immunization history:: Adult Immunizations. - Social history:: Smoking status: Patient uses tobacco products, smokes one-half pack cigarettes per day. - Ebola Screening: : Patient denies travel to an Ebola-affected area in the 21 days before illness onset. ROS: 16:27 Neck: Negative for injury, pain, and swelling, Cardiovascular: Negative for chest pain, kb palpitations, and edema, Abdomen/GI: Negative for abdominal pain, nausea, vomiting, diarrhea, and constipation, Back: Negative for injury and pain, MS/Extremity: Negative for injury and deformity, Skin: Negative for injury, rash, and discoloration, Neuro: Negative for headache, weakness, numbness, tingling, and seizure. 16:27 Constitutional: Positive for body aches, fatigue, malaise. 16:27 ENT: Positive for rhinorrhea, sore throat. 16:27 Respiratory: Positive for cough, Negative for dyspnea on exertion, hemoptysis, orthopnea, pleurisy, shortness of breath, sputum production, wheezing. Exam: 16:29 Constitutional: This is a well developed, well nourished patient who is awake, alert, kb and in no acute distress. Head/Face: Normocephalic, atraumatic. ENT: Nares patent. No nasal discharge, no septal abnormalities noted. Tympanic membranes are normal and external auditory canals are clear. Oropharynx with no redness, swelling, or masses, exudates, or evidence of obstruction, uvula midline. Mucous membranes moist. Neck: Trachea midline, no thyromegaly or masses palpated, and no cervical lymphadenopathy. Supple, full range of motion without nuchal rigidity, or vertebral point tenderness. No Meningismus. Chest/axilla: Normal chest wall appearance and motion. Nontender with no deformity. No lesions are appreciated. Cardiovascular: Regular rate and rhythm with a normal S1 and S2. No gallops, murmurs, or rubs. Normal PMI, no JVD. No pulse deficits. Respiratory: Lungs have equal breath sounds bilaterally, clear to auscultation and percussion. No rales, rhonchi or wheezes noted. No increased work of breathing, no retractions or nasal flaring. Abdomen/GI: Soft, non-tender, with normal bowel sounds. No distension or tympany. No guarding or rebound. No evidence of tenderness throughout. Skin: Warm, dry with normal turgor. Normal color with no rashes, no lesions, and no evidence of cellulitis. MS/ Extremity: Pulses equal, no cyanosis. Neurovascular intact. Full, normal range of motion. Neuro: Awake and alert, GCS 15, oriented to person, place, time, and situation. Cranial nerves II-XII grossly intact. Motor strength 5/5 in all extremities. Sensory grossly intact. Cerebellar exam normal. Normal gait. Vital Signs: 16:01 BP 137 / 93; Pulse 83; Resp 17; Temp 98.3(O); Pulse Ox 99% on R/A; Weight 120.2 kg (R); tw2 Height 5 ft. 9 in. (175.26 cm); Pain 6/10; 16:01 Body Mass Index 39.13 (120.20 kg, 175.26 cm) tw2 MDM: 16:02 Patient medically screened. kb 16:28 Data reviewed: vital signs, nurses notes. Data interpreted: Pulse oximetry: on room air kb is 99 %. Interpretation: normal. 16:55 Counseling: I had a detailed discussion with the patient and/or guardian regarding: the kb historical points, exam findings, and any diagnostic results supporting the discharge/admit diagnosis, lab results, the need for outpatient follow up, a family practitioner, to return to the emergency department if symptoms worsen or persist or if there are any questions or concerns that arise at home. 01/18 16:01 Order name: Flu; Complete Time: 16:55 kb 01/18 16:12 Order name: Strep; Complete Time: 16:55 kb 01/18 16:49 Order name: Throat Culture EDMS Administered Medications: No medications were administered Disposition: 01/19 07:14 Co-signature as Attending Physician, New Dasilva MD I agree with the assessment and ankit plan of care. Disposition: 01/18/19 16:56 Discharged to Home. Impression: Acute upper respiratory infection, unspecified. - Condition is Stable. - Discharge Instructions: Upper Respiratory Infection, Adult, [id number], Viral Respiratory Infection, [id number]. - Prescriptions for Tessalon Perles 100 mg Oral Capsule - take 1 capsule by ORAL route every 8 hours As needed; 15 capsule. - Medication Reconciliation Form, Thank You Letter, Antibiotic Education, Prescription Opioid Use, Work release form form. - Follow up: Emergency Department; When: As needed; Reason: Worsening of condition. Follow up: Private Physician; When: 2 - 3 days; Reason: Recheck today's complaints, Continuance of care, Re-evaluation by your physician. Signatures: Dispatcher [employer] EDShanta Brown, MATILDE-Elham CLAYTON-Gena Fitch, RN RN aj1 New Dasilva MD MD cha Wise, Tara RN RN tw2 Corrections: (The following items were deleted from the chart) 01/18 17:42 16:56 01/18/2019 16:56 Discharged to Home. Impression: Acute upper respiratory aj1 infection, unspecified. Condition is Stable. Forms are Medication Reconciliation Form, Thank You Letter, Antibiotic Education, Prescription Opioid Use. Follow up: Emergency Department; When: As needed; Reason: Worsening of condition. Follow up: Private Physician; When: 2 - 3 days; Reason: Recheck today's complaints, Continuance of care, Re-evaluation by your physician. kb
== END 2019-01-18 17:42 | disposition home or self-care (01) ==
LOC: ER 15:52
DX: J06.9 Acute upper respiratory infection, unspecified (principal); F17.210 Nicotine dependence, cigarettes, uncomplicated
CPT/HCPCS: 87070; 87081; 87804; 99282

== ENCOUNTER 2019-06-28 15:52 | Emergency (ER) | payer SELFPAY ==
--- NOTE | 2019-06-28 16:13 | ER ---
Nurse's Notes [facility] Name: Presley Madera Age: 38 yrs Sex: Male : 1980 Arrival Date: 06/28/2019 Time: 15:54 Bed 10 Private MD: Diagnosis: Acute pharyngitis;Diarrhea, unspecified Presentation: 06/28 15:59 Presenting complaint: Patient states: congestion, facial pain, diarrhea since this la1 morning, I had to miss work. Transition of care: patient was not received from another setting of care. Onset of symptoms was June 28, 2019. Risk Assessment: Do you want to hurt yourself or someone else? Patient reports no desire to harm self or others. Initial Sepsis Screen: Does the patient meet any 2 criteria? No. Patient's initial sepsis screen is negative. Does the patient have a suspected source of infection? No. Patient's initial sepsis screen is negative. Care prior to arrival: None. 15:59 Method Of Arrival: Ambulatory la1 15:59 Acuity: NATASHA 4 la1 Historical: - Allergies: 15:59 No Known Allergies; la1 - PMHx: 15:59 None; la1 - Immunization history:: Adult Immunizations up to date. - Social history:: Smoking status: Patient/guardian denies using tobacco. - Ebola Screening: : No symptoms or risks identified at this time. Screenin:00 Abuse screen: Denies threats or abuse. Nutritional screening: No deficits noted. la1 Tuberculosis screening: No symptoms or risk factors identified. Fall Risk None identified. Assessment: 16:00 General: Appears in no apparent distress. Behavior is calm, cooperative. Pain: la1 Complains of pain in face. Neuro: Level of Consciousness is awake, alert, obeys commands, Oriented to person, place, time, situation. Cardiovascular: Capillary refill < 3 seconds Patient's skin is warm and dry. Respiratory: Airway is patent Respiratory effort is even, unlabored, Respiratory pattern is regular, symmetrical. GI: Abdomen is round non-distended. : No signs and/or symptoms were reported regarding the genitourinary system. Vital Signs: 15:59 BP 161 / 105; Pulse 72; Resp 16; Temp 97.6; Pulse Ox 100% on R/A; Weight 117.93 kg; la1 Height 5 ft. 10 in. (177.80 cm); 15:59 Body Mass Index 37.31 (117.93 kg, 177.80 cm) la1 ED Course: 15:54 Patient arrived in ED. mr 15:58 Arm band placed on left wrist. la1 15:59 Triage completed. la1 16:00 Patient has correct armband on for positive identification. la1 16:02 Ginger Thornton, RN is Primary Nurse. iw 16:05 Kayden Lopez NP is PHCP. pm1 16:05 Bradley Matthews MD is Attending Physician. pm1 16:25 No provider procedures requiring assistance completed. Patient did not have IV access iw during this emergency room visit. Administered Medications: No medications were administered Outcome: 16:12 Discharge ordered by . pm1 16:25 Discharged to home ambulatory. iw 16:25 Condition: good 16:25 Discharge instructions given to patient, Instructed on discharge instructions, follow up and referral plans. medication usage, Demonstrated understanding of instructions, follow-up care, medications, Prescriptions given X 2. 16:25 Patient left the ED. iw Signatures: Tsering Carpenter mr Ginger Thornton, RN RN iw Barrie Irvin RN RN la1 Kayden Lopez NP [employer] pm1
--- NOTE | 2019-06-28 16:13 | EDPHYS ---
Physician Documentation [facility] Name: Presley Madera Age: 38 yrs Sex: Male : 1980 Arrival Date: 06/28/2019 Time: 15:54 Bed 10 Private MD: ED Physician Bradley Matthews HPI: 06/28 16:10 This 38 yrs old Male presents to ER via Ambulatory with complaints of pm1 Diarrhea, Cough, Congestion. 16:10 The patient presents to the emergency department with diarrhea, 2 times since the onset pm1 of symptoms. Onset: The symptoms/episode began/occurred this morning. Possible causes: unknown. The symptoms are aggravated by nothing. The symptoms are alleviated by nothing. Associated signs and symptoms: Pertinent negatives: abdominal pain, constipation, dysuria, fever, GI bleeding, nausea, vomiting. Severity of symptoms: in the emergency department the symptoms have improved. The patient has not recently seen a physician. Patient also complaining of sore throat and left sided sinus congestion. Historical: - Allergies: 15:59 No Known Allergies; la1 - PMHx: 15:59 None; la1 - Immunization history:: Adult Immunizations up to date. - Social history:: Smoking status: Patient/guardian denies using tobacco. - Ebola Screening: : No symptoms or risks identified at this time. ROS: 16:10 Constitutional: Negative for fever, chills, and weight loss, Eyes: Negative for injury, pm1 pain, redness, and discharge. 16:10 Neck: Negative for injury, pain, and swelling, Cardiovascular: Negative for chest pain, palpitations, and edema, Respiratory: Negative for shortness of breath, cough, wheezing, and pleuritic chest pain. 16:10 Back: Negative for injury and pain, : Negative for injury, bleeding, discharge, and swelling, MS/Extremity: Negative for injury and deformity, Skin: Negative for injury, rash, and discoloration, Neuro: Negative for headache, weakness, numbness, tingling, and seizure. 16:10 ENT: Positive for sinus congestion, sinus pain, sore throat, Negative for drainage from ear(s), ear pain. 16:10 Abdomen/GI: Positive for diarrhea, Negative for abdominal pain, nausea and vomiting. Exam: 16:10 Constitutional: This is a well developed, well nourished patient who is awake, alert, pm1 and in no acute distress. Eyes: Pupils equal round and reactive to light, extra-ocular motions intact. Lids and lashes normal. Conjunctiva and sclera are non-icteric and not injected. Cornea within normal limits. Periorbital areas with no swelling, redness, or edema. Neck: Trachea midline, no thyromegaly or masses palpated, and no cervical lymphadenopathy. Supple, full range of motion without nuchal rigidity, or vertebral point tenderness. No Meningismus. Chest/axilla: Normal chest wall appearance and motion. Nontender with no deformity. No lesions are appreciated. Cardiovascular: Regular rate and rhythm with a normal S1 and S2. No gallops, murmurs, or rubs. Normal PMI, no JVD. No pulse deficits. Respiratory: Lungs have equal breath sounds bilaterally, clear to auscultation and percussion. No rales, rhonchi or wheezes noted. No increased work of breathing, no retractions or nasal flaring. Abdomen/GI: Soft, non-tender, with normal bowel sounds. No distension or tympany. No guarding or rebound. No evidence of tenderness throughout. Back: No spinal tenderness. No costovertebral tenderness. Full range of motion. Skin: Warm, dry with normal turgor. Normal color with no rashes, no lesions, and no evidence of cellulitis. MS/ Extremity: Pulses equal, no cyanosis. Neurovascular intact. Full, normal range of motion. 16:10 Head/face: Noted is no obvious of injury or deformity except Sinus tenderness, that is mild, is located over the left frontal sinus. 16:10 ENT: External ear(s): are unremarkable, Ear canal(s): are normal, TM's: are normal, Nose: is normal, Mouth: is normal, Posterior pharynx: Airway: normal, no evidence of obstruction, patent, Tonsils: bilaterally enlarged, with erythema, no exudate, no ulcerations, peritonsillar mass, is not appreciated, pooling of secretions, is not appreciated. 16:10 Neuro: Orientation: is normal, Motor: is normal, moves all fours, Gait: is steady, at a normal pace, without difficulty. Vital Signs: 15:59 BP 161 / 105; Pulse 72; Resp 16; Temp 97.6; Pulse Ox 100% on R/A; Weight 117.93 kg; la1 Height 5 ft. 10 in. (177.80 cm); 15:59 Body Mass Index 37.31 (117.93 kg, 177.80 cm) la1 MDM: 16:05 Patient medically screened. pm1 16:10 Data reviewed: vital signs. Data interpreted: Pulse oximetry: on room air is 100 %. pm1 Interpretation: normal. Counseling: I had a detailed discussion with the patient and/or guardian regarding: the historical points, exam findings, and any diagnostic results supporting the discharge/admit diagnosis, the need for outpatient follow up, to return to the emergency department if symptoms worsen or persist or if there are any questions or concerns that arise at home. 06/28 16:10 Order name: Strep; Complete Time: 17:06 pm1 Administered Medications: No medications were administered Disposition: 18:31 Co-signature as Attending Physician, Bradley Matthews MD. rn Disposition: 06/28/19 16:12 Discharged to Home. Impression: Acute pharyngitis, Diarrhea, unspecified. - Condition is Stable. - Discharge Instructions: Food Choices to Help Relieve Diarrhea, Adult, Diarrhea, Adult, Pharyngitis. - Prescriptions for Amoxicillin 500 mg Oral Capsule - take 1 capsule by ORAL route every 8 hours for 10 days; 30 tablet. Lomotil 2.5- 0.025 mg Oral Tablet - take 1 tablet by ORAL route every 6 hours As needed; 20 tablet. - Work release form, Medication Reconciliation Form, Thank You Letter, Antibiotic Education, Prescription Opioid Use form. - Follow up: Emergency Department; When: As needed; Reason: Worsening of condition. Follow up: Private Physician; When: 2 - 3 days; Reason: Recheck today's complaints, Continuance of care, Re-evaluation by your physician. - Problem is new. - Symptoms have improved. Signatures: Dispatcher [employer] Ginger Magana RN RN iw Nieto, Roman, MD MD rn Attema, Lee, RN RN la1 Kayden Lopez NP [employer] pm1 Corrections: (The following items were deleted from the chart) 16:25 16:12 06/28/2019 16:12 Discharged to Home. Impression: Acute pharyngitis; Diarrhea, iw unspecified. Condition is Stable. Forms are Medication Reconciliation Form, Thank You Letter, Antibiotic Education, Prescription Opioid Use. Follow up: Emergency Department; When: As needed; Reason: Worsening of condition. Follow up: Private Physician; When: 2 - 3 days; Reason: Recheck today's complaints, Continuance of care, Re-evaluation by your physician. Problem is new. Symptoms have improved. pm1
[2019-06-28 16:29] VITALS: BP 161/105; TEMP 97.6; O2SAT 100
== END 2019-06-28 16:25 | disposition home or self-care (01) ==
LOC: ER 15:52
DX: J02.9 Acute pharyngitis, unspecified (principal); R19.7 Diarrhea, unspecified
CPT/HCPCS: 87070; 87081; 99282